=== PATIENT | male | born 1995 | race Asian ===

== ENCOUNTER 2018-09-30 21:36 | Emergency (ER) | payer OTHER ==
[~2018-09-30] VITALS: Ht 167.6 cm; Wt 96.6 kg
[2018-09-30 21:38] VITALS: BP 123/75
--- NOTE | 2018-09-30 22:18 | NUR ---
PT HERE FOR PAINFUL URINATION AND REDNESS TO PENIS. UA SENT TO LAB. VSS. CALL LIGHT IN REACH
[2018-09-30 22:23] LABS: MICROSCOPIC NOT IND
[2018-09-30 22:35] LABS: CULTURE INDICATED? NO
--- NOTE | 2018-09-30 23:12 | NUR ---
Patient given discharge instructions and they have confirmed that they understand the instructions. Patient ambulatory with steady gait.
== END 2018-09-30 23:16 | disposition home or self-care (01) ==
LOC: ED 23:09
DX: B37.42 Candidal balanitis (principal)
CPT/HCPCS: 81003; 82962; 87491; 87591; 99283